=== PATIENT | female | born 1940 | race Caucasian/White ===

== ENCOUNTER → 2016-03-16 | Outpatient (CLI) | payer MEDICARE, BC ==
[~2016-03-16] MED LIST: AMIO200T PO; AMLO2.5T PO; ATOR10 PO; BENA20TA PO; CLON-352 PO; GLIM1TAB PO; WARF2TAB PO
[2016-03-16 12:43] LABS: INTERNATIONAL NORMALIZED RATIO 2.4 RATIO; PROTHROMBIN TIME - PATIENT 27.8 SEC (9.8-11.6)
== END ==
LOC: PLAB 11:29
DX: Z79.01 Long term (current) use of anticoagulants (principal)
CPT/HCPCS: 36415; 85610

== ENCOUNTER → 2016-04-13 | Outpatient (CLI) | payer MEDICARE, BC ==
[2016-04-13 14:13] LABS: INTERNATIONAL NORMALIZED RATIO 2.8 RATIO; PROTHROMBIN TIME - PATIENT 32.7 SEC (9.8-11.6)
== END ==
LOC: PLAB 12:36
DX: Z79.01 Long term (current) use of anticoagulants (principal)
CPT/HCPCS: 36415; 85610

== ENCOUNTER → 2016-05-06 | Outpatient (CLI) | payer MEDICARE, BC ==
[2016-05-06 12:15] LABS: INTERNATIONAL NORMALIZED RATIO 2.2 RATIO
== END ==
LOC: PLAB 10:32
DX: Z79.01 Long term (current) use of anticoagulants (principal)
CPT/HCPCS: 36415; 85610

== ENCOUNTER → 2016-06-07 | Outpatient (CLI) | payer MEDICARE, BC | LOC: PLAB 14:46 | DX: Z79.01 Long term (current) use of anticoagulants (principal) | CPT/HCPCS: 85610 ==

== ENCOUNTER → 2016-07-05 | Outpatient (CLI) | payer MEDICARE, BC ==
[2016-07-05 12:40] LABS: INTERNATIONAL NORMALIZED RATIO 1.9 RATIO; PROTHROMBIN TIME - PATIENT 21.4 SEC (9.8-11.6)
== END ==
LOC: PLAB 10:09
DX: Z79.01 Long term (current) use of anticoagulants (principal)
CPT/HCPCS: 36415; 85610

== ENCOUNTER → 2017-01-17 | Outpatient (CLI) | payer MEDICARE, BC ==
[2017-01-17 13:35] LABS: INTERNATIONAL NORMALIZED RATIO 2.4 RATIO; PROTHROMBIN TIME - PATIENT 27.7 SEC (9.8-11.6)
== END ==
LOC: PLAB 12:47
DX: Z79.01 Long term (current) use of anticoagulants (principal)
CPT/HCPCS: 36415; 85610

== ENCOUNTER → 2017-02-16 | Outpatient (CLI) | payer MEDICARE, BC ==
[2017-02-16 14:13] LABS: INTERNATIONAL NORMALIZED RATIO 2.2 RATIO; PROTHROMBIN TIME - PATIENT 22.5 SEC (9.8-11.6)
== END ==
LOC: PLAB 13:24
DX: Z79.01 Long term (current) use of anticoagulants (principal)
CPT/HCPCS: 36415; 85610

== ENCOUNTER → 2017-03-28 | Outpatient (CLI) | payer MEDICARE, BC ==
[2017-03-28 12:52] LABS: INTERNATIONAL NORMALIZED RATIO 2.9 RATIO; PROTHROMBIN TIME - PATIENT 28.8 SEC (9.8-11.6)
== END ==
LOC: PLAB 11:25
DX: Z79.01 Long term (current) use of anticoagulants (principal)
CPT/HCPCS: 36415; 85610

== ENCOUNTER → 2017-05-02 | Outpatient (CLI) | payer MEDICARE, BC ==
[2017-05-02 14:11] LABS: INTERNATIONAL NORMALIZED RATIO 2.9 RATIO; PROTHROMBIN TIME - PATIENT 29.5 SEC (9.8-11.6)
== END ==
LOC: PLAB 13:36
DX: Z79.01 Long term (current) use of anticoagulants (principal)
CPT/HCPCS: 36415; 85610

== ENCOUNTER 2018-01-08 21:42 | Observation (INO) ==
[2018-01-08 22:06] LABS: Baso # (Auto) 0.1 th/mm3 (0.0-0.2); Baso % (Auto) 0.8 % (0.0-2.0); Eos # (Auto) 0.2 th/mm3 (0.0-0.4); Hematocrit 41.8 % (35.0-46.0); Hemoglobin 14.9 gm/dL (11.6-15.3); Lymph # (Auto) 3.7 th/mm3 (1.0-4.8); Lymph % (Auto) 35.2 % (9.0-44.0); Mean Corpuscular HGB Conc 35.7 % (32.0-36.0); Mean Corpuscular Hemoglobin 30.7 pg (27.0-34.0); Mean Corpuscular Volume 86.2 fL (80.0-100.0); Mean Platelet Volume 8.5 fL (7.0-11.0); Mono % (Auto) 9.1 % (0.0-8.0); Neut # (Auto) 5.6 th/mm3 (1.8-7.7); Neut % (Auto) 52.9 % (16.0-70.0); Platelet Count 282 th/mm3 (150-450); Red Blood Count 4.84 mil/mm3 (4.00-5.30); Red Cell Distribution Width 12.9 % (11.6-17.2); White Blood Count 10.6 th/mm3 (4.0-11.0)
--- NOTE | 2018-01-08 22:12 | ED ---
HPI General Chief complaint: Chest Pain Stated complaint: chest pain Time Seen by Provider: 01/08/18 21:54 History of Present Illness HPI narrative: 77-year-old female with history of coronary artery disease, CABG in 2003, pacemaker, diabetes, hypertension, atrial fibrillation, on warfarin, presents for evaluation of chest pain. Symptoms started 2 hours prior to arrival when she was sitting in a chair at home. She describes it as a substernal chest pressure with no obvious aggravating relieving factors, some dyspnea and nausea as well. Symptoms are moderate. Denies back pain, dizziness or lightheadedness, lower extremity edema. She has no other complaints at this time. Related Data Home Medications Medication Instructions Recorded Confirmed amlodipine-benazepril 1 cap PO DAILY 01/08/18 01/09/18 dronedarone [Multaq] 400 mg PO BID 01/08/18 01/08/18 glimepiride 4 mg PO QAM 01/08/18 01/08/18 warfarin 2.5 mg PO DAILY 01/08/18 01/08/18 Previous Rx's Medication Instructions Recorded metoprolol tartrate 12.5 mg PO HS #30 tab 01/10/18 Allergies Allergy/AdvReac Type Severity Reaction Status Date / Time epinephrine Allergy Severe Shortness Unverified 01/08/18 21:55 of Breath meperidine Allergy Severe Nausea/Vomi Unverified 01/08/18 21:55 ting penicillin G Allergy Severe Rash, Unverified 01/08/18 21:55 Generalized Review of Systems ROS: all other systems reviewed are negative FOR[facility]LY [facility] Medical History Medical History Afib (Acute) CAD (coronary artery disease) (Acute) Diabetes (Acute) HTN (hypertension) (Acute) History of hysterectomy (Acute) Pacemaker (Acute) Surgical History Surgical History Hx of CABG (Acute) S/P ablation of atrial fibrillation (Acute) Social History Social History Substance History: No History of Abuse Second Hand Smoke Exposure: No Smoking Status: Never smoker How Often Do You Have a Drink Containing Alcohol: Never Recent Travel in [facility] within the Last 8 Weeks: No Recent Out of Country Travel within the Last 8 Weeks: No Immunization History Tetanus Immunization: >5 Years Exam Narrative Exam Narrative: GENERAL: Pleasant well-developed well-nourished female no acute distress. Somewhat hypertensive on initial examination. SKIN: Warm and dry. HEAD: Atraumatic. Normocephalic. EYES: Pupils equal and round. No scleral icterus. No injection or drainage. ENT: No nasal bleeding or discharge. Mucous membranes pink and moist. NECK: Trachea midline. No JVD. CARDIOVASCULAR: Regular rate and rhythm. No murmur appreciated. RESPIRATORY: No accessory muscle use. Clear to auscultation. Breath sounds equal bilaterally. GASTROINTESTINAL: Abdomen soft, non-tender, nondistended. Hepatic and splenic margins not palpable. MUSCULOSKELETAL: No obvious deformities. No clubbing. No cyanosis. No edema. NEUROLOGICAL: Awake and alert. No obvious cranial nerve deficits. Motor grossly within normal limits. Normal speech. PSYCHIATRIC: Appropriate mood and affect; insight and judgment normal. Course Initial Documented Vital Signs Temperature 98.1 F 01/08/18 21:48 Pulse Rate 67 01/08/18 21:48 Respiratory Rate 20 01/08/18 21:48 Blood Pressure 207/91 H 01/08/18 21:48 Pulse Oximetry 99 01/08/18 21:48 Last Documented Vital Signs Temperature 97.8 F 01/10/18 16:00 Pulse Rate 61 01/10/18 16:00 Respiratory Rate 16 01/10/18 16:00 Blood Pressure 150/70 H 01/10/18 16:00 Pulse Oximetry 97 01/10/18 16:00 Medical Decision Making FLIP Attestation FLIP supervised visit: Yes Attestation: 77-year-old female came to the emergency room with history of chest pain pain/pressure with the intensity of 10 out of 10 an hour prior to arrival. She was seen by my PA and I am supervising him. Patient has history of CABG in 2003 and says that her pressure feels the same way as she felt prior to her CABG. Patient has history of A. fib and is on Coumadin. She also has a pacemaker. Blood test results came back and the troponin is negative. INR is therapeutic. I went and examined the patient and after 3 sublingual nitros and aspirin her chest pain came down to 6 out of 10. Blood pressure was 165 systolic. Patient will get some morphine for pain. I discussed the case with the hospitalist will admit the patient. I explained to the patient her test results as well as the plan and answered all her and her son's questions to the best of my ability. MDM Narrative Medical decision making narrative: The patient was placed on ECG monitoring pulse oximetry. A 12-lead EKG was obtained revealing a paced rhythm. Lab work , chest x-ray ordered. The patient was given sublingual nitroglycerin, aspirin. Lab work has been reviewed. Initial set of cardiac enzymes are negative. Potassium is 3.4, 20 mEq oral potassium chloride administered. INR is therapeutic at 2.1. GFR is 52. The patient's pain improved after the administration of nitroglycerin however did not resolve. Therefore morphine and Zofran has been ordered. At this point time as the patient's pain is persisting, she will be admitted to the hospitalist service. Dr. Solorio spoke with Dr. Downing who is agreeable. Medical Screen Exam Complete: Yes Emergency Medical Condition: Yes Differential Diagnosis Differential Diagnosis: Acute coronary syndrome, unstable angina, aortic dissection, pneumothorax, pulmonary embolism, pericarditis, myocarditis Lab Data Result diagrams: 01/09/18 04:03 01/09/18 04:03 Lab Results 01/08/18 01/08/18 01/08/18 Range/Units 21:59 21:59 21:59 WBC 10.6 (4.0-11.0) th/mm3 RBC 4.84 (4.00-5.30) mil/mm3 Hgb 14.9 (11.6-15.3) gm/dL Hct 41.8 (35.0-46.0) % MCV 86.2 (80.0-100.0) fL MCH 30.7 (27.0-34.0) pg MCHC 35.7 (32.0-36.0) % RDW 12.9 (11.6-17.2) % Plt Count 282 (150-450) th/mm3 MPV 8.5 (7.0-11.0) fL Neut % (Auto) 52.9 (16.0-70.0) % Lymph % (Auto) 35.2 (9.0-44.0) % Morris % (Auto) 9.1 H (0.0-8.0) % Eos % (Auto) 2.0 (0.0-4.0) % Baso % (Auto) 0.8 (0.0-2.0) % Neut # (Auto) 5.6 (1.8-7.7) th/mm3 Lymph # (Auto) 3.7 (1.0-4.8) th/mm3 Morris # (Auto) 1.0 H (0.0-0.9) th/mm3 Eos # (Auto) 0.2 (0.0-0.4) th/mm3 Baso # (Auto) 0.1 (0.0-0.2) th/mm3 WBC Differential . Differential Comment Auto diff final PT 21.4 H (9.8-11.6) sec INR 2.1 Ratio APTT 37.2 H (23.4-31.7) sec Sodium 138 (136-145) meq/L Potassium 3.4 L (3.5-5.1) meq/L Chloride 106 (98-107) meq/L Carbon Dioxide 21.8 (21.0-32.0) meq/L Anion Gap 10 (5-15) meq/L BUN 19 H (7-18) mg/dL Creatinine 1.03 H (0.50-1.00) mg/dL Estimated GFR 52 L (>89) mL/min POC Glucose (68-110) mg/dl Random Glucose 163 H (74-106) mg/dL Calcium 8.6 (8.5-10.1) mg/dL Magnesium 2.1 (1.5-2.5) mg/dL Total Bilirubin 0.4 (0.2-1.0) mg/dL AST 22 (15-37) U/L ALT 36 (10-53) U/L Alkaline Phosphatase 134 H (45-117) U/L Total Creatine Kinase 162 (26-192) U/L CK-MB (CK-2) 2.7 (0.5-3.6) ng/mL Troponin I Less than 0.02 L (0.02-0.05) ng/mL Total Protein 8.2 (6.4-8.2) g/dL Albumin 4.3 (3.4-5.0) g/dL Lipase 219 (73-393) U/L 01/09/18 01/09/18 01/09/18 Range/Units 02:29 04:03 04:03 WBC 8.4 (4.0-11.0) th/mm3 RBC 4.41 (4.00-5.30) mil/mm3 Hgb 13.5 (11.6-15.3) gm/dL Hct 38.7 (35.0-46.0) % MCV 87.7 (80.0-100.0) fL MCH 30.7 (27.0-34.0) pg MCHC 35.0 (32.0-36.0) % RDW 13.0 (11.6-17.2) % Plt Count 229 (150-450) th/mm3 MPV 8.5 (7.0-11.0) fL Neut % (Auto) 74.9 H (16.0-70.0) % Lymph % (Auto) 16.0 (9.0-44.0) % Morris % (Auto) 7.6 (0.0-8.0) % Eos % (Auto) 0.7 (0.0-4.0) % Baso % (Auto) 0.8 (0.0-2.0) % Neut # (Auto) 6.3 (1.8-7.7) th/mm3 Lymph # (Auto) 1.3 (1.0-4.8) th/mm3 Morris # (Auto) 0.6 (0.0-0.9) th/mm3 Eos # (Auto) 0.1 (0.0-0.4) th/mm3 Baso # (Auto) 0.1 (0.0-0.2) th/mm3 WBC Differential . Differential Comment Auto diff final PT 25.3 H (9.8-11.6) sec INR 2.5 Ratio APTT (23.4-31.7) sec Sodium (136-145) meq/L Potassium (3.5-5.1) meq/L Chloride (98-107) meq/L Carbon Dioxide (21.0-32.0) meq/L Anion Gap (5-15) meq/L BUN (7-18) mg/dL Creatinine (0.50-1.00) mg/dL Estimated GFR (>89) mL/min POC Glucose (68-110) mg/dl Random Glucose (74-106) mg/dL Calcium (8.5-10.1) mg/dL Magnesium (1.5-2.5) mg/dL Total Bilirubin (0.2-1.0) mg/dL AST (15-37) U/L ALT (10-53) U/L Alkaline Phosphatase (45-117) U/L Total Creatine Kinase (26-192) U/L CK-MB (CK-2) (0.5-3.6) ng/mL Troponin I Less than 0.02 L (0.02-0.05) ng/mL Total Protein (6.4-8.2) g/dL Albumin (3.4-5.0) g/dL Lipase (73-393) U/L 01/09/18 01/09/18 01/09/18 Range/Units 04:03 07:37 11:08 WBC (4.0-11.0) th/mm3 RBC (4.00-5.30) mil/mm3 Hgb (11.6-15.3) gm/dL Hct (35.0-46.0) % MCV (80.0-100.0) fL MCH (27.0-34.0) pg MCHC (32.0-36.0) % RDW (11.6-17.2) % Plt Count (150-450) th/mm3 MPV (7.0-11.0) fL Neut % (Auto) (16.0-70.0) % Lymph % (Auto) (9.0-44.0) % Morris % (Auto) (0.0-8.0) % Eos % (Auto) (0.0-4.0) % Baso % (Auto) (0.0-2.0) % Neut # (Auto) (1.8-7.7) th/mm3 Lymph # (Auto) (1.0-4.8) th/mm3 Morris # (Auto) (0.0-0.9) th/mm3 Eos # (Auto) (0.0-0.4) th/mm3 Baso # (Auto) (0.0-0.2) th/mm3 WBC Differential Differential Comment PT (9.8-11.6) sec INR Ratio APTT (23.4-31.7) sec Sodium 139 (136-145) meq/L Potassium 4.6 D (3.5-5.1) meq/L Chloride 107 (98-107) meq/L Carbon Dioxide 24.8 (21.0-32.0) meq/L Anion Gap 7 (5-15) meq/L BUN 16 (7-18) mg/dL Creatinine 0.92 (0.50-1.00) mg/dL Estimated GFR 59 L (>89) mL/min POC Glucose 106 170 H (68-110) mg/dl Random Glucose 186 H (74-106) mg/dL Calcium 7.9 L (8.5-10.1) mg/dL Magnesium (1.5-2.5) mg/dL Total Bilirubin 0.6 (0.2-1.0) mg/dL AST 20 (15-37) U/L ALT 30 (10-53) U/L Alkaline Phosphatase 101 (45-117) U/L Total Creatine Kinase (26-192) U/L CK-MB (CK-2) (0.5-3.6) ng/mL Troponin I Less than 0.02 L (0.02-0.05) ng/mL Total Protein 6.8 D (6.4-8.2) g/dL Albumin 3.6 D (3.4-5.0) g/dL Lipase (73-393) U/L 01/09/18 01/09/18 01/10/18 Range/Units 17:05 21:11 07:51 WBC (4.0-11.0) th/mm3 RBC (4.00-5.30) mil/mm3 Hgb (11.6-15.3) gm/dL Hct (35.0-46.0) % MCV (80.0-100.0) fL MCH (27.0-34.0) pg MCHC (32.0-36.0) % RDW (11.6-17.2) % Plt Count (150-450) th/mm3 MPV (7.0-11.0) fL Neut % (Auto) (16.0-70.0) % Lymph % (Auto) (9.0-44.0) % Morris % (Auto) (0.0-8.0) % Eos % (Auto) (0.0-4.0) % Baso % (Auto) (0.0-2.0) % Neut # (Auto) (1.8-7.7) th/mm3 Lymph # (Auto) (1.0-4.8) th/mm3 Morris # (Auto) (0.0-0.9) th/mm3 Eos # (Auto) (0.0-0.4) th/mm3 Baso # (Auto) (0.0-0.2) th/mm3 WBC Differential Differential Comment PT (9.8-11.6) sec INR Ratio APTT (23.4-31.7) sec Sodium (136-145) meq/L Potassium (3.5-5.1) meq/L Chloride (98-107) meq/L Carbon Dioxide (21.0-32.0) meq/L Anion Gap (5-15) meq/L BUN (7-18) mg/dL Creatinine (0.50-1.00) mg/dL Estimated GFR (>89) mL/min POC Glucose 148 H 187 H 153 H (68-110) mg/dl Random Glucose (74-106) mg/dL Calcium (8.5-10.1) mg/dL Magnesium (1.5-2.5) mg/dL Total Bilirubin (0.2-1.0) mg/dL AST (15-37) U/L ALT (10-53) U/L Alkaline Phosphatase (45-117) U/L Total Creatine Kinase (26-192) U/L CK-MB (CK-2) (0.5-3.6) ng/mL Troponin I (0.02-0.05) ng/mL Total Protein (6.4-8.2) g/dL Albumin (3.4-5.0) g/dL Lipase (73-393) U/L 01/10/18 Range/Units 16:25 WBC (4.0-11.0) th/mm3 RBC (4.00-5.30) mil/mm3 Hgb (11.6-15.3) gm/dL Hct (35.0-46.0) % MCV (80.0-100.0) fL MCH (27.0-34.0) pg MCHC (32.0-36.0) % RDW (11.6-17.2) % Plt Count (150-450) th/mm3 MPV (7.0-11.0) fL Neut % (Auto) (16.0-70.0) % Lymph % (Auto) (9.0-44.0) % Morris % (Auto) (0.0-8.0) % Eos % (Auto) (0.0-4.0) % Baso % (Auto) (0.0-2.0) % Neut # (Auto) (1.8-7.7) th/mm3 Lymph # (Auto) (1.0-4.8) th/mm3 Morris # (Auto) (0.0-0.9) th/mm3 Eos # (Auto) (0.0-0.4) th/mm3 Baso # (Auto) (0.0-0.2) th/mm3 WBC Differential Differential Comment PT (9.8-11.6) sec INR Ratio APTT (23.4-31.7) sec Sodium (136-145) meq/L Potassium (3.5-5.1) meq/L Chloride (98-107) meq/L Carbon Dioxide (21.0-32.0) meq/L Anion Gap (5-15) meq/L BUN (7-18) mg/dL Creatinine (0.50-1.00) mg/dL Estimated GFR (>89) mL/min POC Glucose 96 (68-110) mg/dl Random Glucose (74-106) mg/dL Calcium (8.5-10.1) mg/dL Magnesium (1.5-2.5) mg/dL Total Bilirubin (0.2-1.0) mg/dL AST (15-37) U/L ALT (10-53) U/L Alkaline Phosphatase (45-117) U/L Total Creatine Kinase (26-192) U/L CK-MB (CK-2) (0.5-3.6) ng/mL Troponin I (0.02-0.05) ng/mL Total Protein (6.4-8.2) g/dL Albumin (3.4-5.0) g/dL Lipase (73-393) U/L Imaging Data Radiologist's impression: Chest X-Ray 01/08/18 21:55 CONCLUSION: The lungs are clear. Myocardial Perfusion Scan Nuc Med 01/10/18 00:00 CONCLUSION: 1. No reversible defects observed to suggest acute ischemia. ECG Data Attestation: I personally reviewed and interpreted this ECG as follows: Interpretation: Twelve-lead EKG was reviewed by me. Paced rhythm. Heart rate of 63/min. Discharge Plan Discharge Disposition Patient Disposition: 30 Still Patient Discharge Condition Condition: Stable Discharge Order Discharge Orders: Discharge Order (Routine); Ordered 01/10/18 Ordered By: Asuncion Long Discharge Details Anticipated Discharge Date: 01/10/18 Discharge Comment: OK to discharge patient once cleared by Cardiology Dr Thakur Diagnosis: Chest pain Physicians Team ED Provider: Rebecca Solorio ED Midlevel Provider: Deuce Terry Attending Provider: Asif Acharya Other Providers: Deandre Ugarte Status ED Status: Left Department Discharge Information Discharge Date/Time: 01/08/18 23:52
[2018-01-08 22:17] LABS: Activated Partial Thrombo Time 37.2 sec (23.4-31.7); INR 2.1 Ratio; Prothrombin Time 21.4 sec (9.8-11.6)
[2018-01-08 22:21] LABS: Alanine Aminotransferase 36 U/L (10-53); Albumin 4.3 g/dL (3.4-5.0); Anion Gap 10 meq/L (5-15); Aspartate Aminotransferase 22 U/L (15-37); Blood Urea Nitrogen 19 mg/dL (7-18); Calcium 8.6 mg/dL (8.5-10.1); Carbon Dioxide 21.8 meq/L (21.0-32.0); Chloride 106 meq/L (98-107); Glomerular Filtration Rate 52 mL/min (>89); Glucose,Random 163 mg/dL (74-106); Lipase 219 U/L (73-393); Magnesium 2.1 mg/dL (1.5-2.5); Potassium 3.4 meq/L (3.5-5.1); Sodium 138 meq/L (136-145)
[2018-01-08 22:25] LABS: Alkaline Phosphatase 134 U/L (45-117); Creatine Kinase 162 U/L (26-192); Total Protein 8.2 g/dL (6.4-8.2)
[2018-01-08] MEDS ORDERED: Morphine Inj 4 MG/ML Vial IV.PUSH ONE (22:31)
[2018-01-08 22:38] LABS: Creatine Kinase MB 2.7 ng/mL (0.5-3.6)
--- NOTE | 2018-01-08 22:48 | XR ---
EXAM DATE: 01/08/2018 10:38 PM EST AGE/SEX: 77 years / Female INDICATIONS: Short of breath. CLINICAL DATA: This is the patient's initial encounter. Patient reports that signs and symptoms have been present for 1 day and indicates a pain score of 0/10. MEDICAL/SURGICAL HISTORY: None. Pacemaker. [place] [facility] [place]. . FINDINGS: A single AP view of the chest demonstrates the lungs to be symmetrically aerated without evidence of mass, infiltrate or effusion. The cardiomediastinal contours are unremarkable. Osseous structures a re intact. Prior median sternotomy with sternal wire sutures. Cardiac pacer with 2 leads, stable. CONCLUSION: The lungs are clear. Electronically signed by: Kurtis Wills MD 01/08/2018 10:46 PM EST
[2018-01-08] MEDS ORDERED: Bisacodyl 10 MG Supp RECTAL PRN (22:50)
[2018-01-08] MEDS ORDERED: Acetaminophen 325 MG Tablet PO PRN (22:50)
[2018-01-08] MEDS ORDERED: Dextrose 50% in Water 50 ML Vial IV.PUSH PRN (22:53)
[2018-01-08] MEDS ORDERED: Morphine Sulfate Inj 2 MG/ML Vial IV.PUSH PRN (22:54)
--- NOTE | 2018-01-08 22:56 | P.HPIM ---
History of Present Illness Primary Care Physician: Robbie Pascual History of Present Illness: This is a 77-year-old female with a PMH of HTN, Hyperlipidemia, CAD s/p CABG 2003, A-fib on Coumadin, Pacemaker (Medtronic) and DM who presented to the ER w / c/o chest pain. Pt reports intermittent episodes of palpitations for the last 1wk "from my A-fib", w/ HR as low as 40's. Today, pt w/ acute onset of severe chest pain, pressure-like, 10/31, non-radiating, associated w/ some SOB. 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 S/p NTG and Morphine today w/ significant improvement in pain complaints, chest pain currently 03/02. On arrival, BP 207/91, HR 67, O2 sat 99% on RA, Afebrile. CBC unremarkable. INR 2.1. Chemistry essentially unremarkable except for creatinine 1.03. Troponin negative. CXR with no acute findings. - Diagnosis (1) Chest pain (2) Afib (3) DM (diabetes mellitus) Review of Systems PAST FAMILY HISTORY: Reviewed. No h/o DM or CAD All other systems reviewed negative except as stated in HPI [facility] - History History Provided By: Patient - Medical History Medical History: Medical History (Last Updated 01/08/18 @ 21:53 by Alejandro Jiménez) Afib CAD (coronary artery disease) Diabetes HTN (hypertension) History of hysterectomy Pacemaker - Surgical History Surgical History: Surgical History (Last Updated 01/08/18 @ 21:52 by Alejandro Jiménez) Hx of CABG S/P ablation of atrial fibrillation - Tobacco History Second Hand Smoke Exposure: No Smoking Status: Never smoker - Alcohol History How Often Do You Have a Drink Containing Alcohol: Never - Travel History Recent Travel in the [place] Within the Last 8 Weeks: No Recent Travel Out of the Country Within the Last 8 Weeks: No - Immunization History Tetanus Immunization: >5 Years Medications and Allergies Active Medications: Active Medications Acetaminophen (Tylenol) 650 mg PO Q4H PRN PRN Reason: Temp > 100.4 Al Hydroxide/Mg Hydroxide (Milk Of Magnesia Liq) 30 ml PO Q12H PRN PRN Reason: Mild Constipation Bisacodyl (Dulcolax Supp) 10 mg RECTAL DAILY PRN PRN Reason: SEVERE CONSITIPATION Dextrose (D50w Vial) 50 ml IV.PUSH UNSCH PRN PRN Reason: PER HYPOGLYCEMIA PROTOCOL Dronedarone (Multaq) 400 mg PO BID [facility] Glucagon (Glucagon Inj) 1 mg OTHER PRN PRN PRN Reason: for Hypoglycemia Protocol Insulin Aspart (Novolog Insulin Correctional Sugar Inj) 0 unit SQ ACHS EMMETT; Protocol Lactulose (Lactulose Liq) 30 ml PO DAILY PRN PRN Reason: SEVERE CONSITIPATION Metoprolol Tartrate (Lopressor) 12.5 mg PO BID [facility] Ondansetron HCl (Zofran Inj) 4 mg IV.PUSH Q6H PRN PRN Reason: NAUSEA OR VOMITING Senna/Docusate Sodium (Concepción-Colace) 1 tab PO BID [facility] Sennosides (Senokot) 17.2 mg PO Q12H PRN PRN Reason: Moderate Constipation Sodium Chloride (Ns Flush) 2 ml IV.FLUSH UNSCH PRN PRN Reason: FLUSH AFTER USING IV ACCESS Warfarin Sodium (Coumadin) 2.5 mg PO DAILY@1600 [facility] Allergies Allergy/AdvReac Type Severity Reaction Status Date / Time epinephrine Allergy Severe Shortness Unverified 01/08/18 21:55 of Breath meperidine Allergy Severe Nausea/Vomi Unverified 01/08/18 21:55 ting penicillin G Allergy Severe Rash, Unverified 01/08/18 21:55 Generalized Home Medications Medication Instructions Recorded Confirmed Type amlodipine-benazepril 1 cap PO DAILY 01/08/18 01/08/18 History dronedarone [Multaq] 400 mg PO BID 01/08/18 01/08/18 History glimepiride 4 mg PO QAM 01/08/18 01/08/18 History metoprolol tartrate 12.5 mg PO BID 01/08/18 01/08/18 History warfarin 2.5 mg PO DAILY 01/08/18 01/08/18 History Exam Vital signs: Vital Signs 01/08/18 21:48 01/08/18 22:00 01/08/18 22:48 Temperature 98.1 F Pulse Rate 67 60 62 Respiratory Rate 20 16 Blood Pressure 207/91 H 169/80 H 169/80 H Pulse Oximetry 99 100 99 Intake & Output 01/08/18 01/08/1818 06:59 18:59 06:59 Weight 65 kg Narrative: PE: GENERAL: Very pleasant elderly white female in no acute distress. SKIN: Focused skin assessment warm and dry. HEENT: PERRLA, EOMI. No scleral icterus or conjunctival pallor. No lid lag or facial droop. CARDIOVASCULAR: Regular rate and rhythm. No obvious murmurs to auscultation. No chest tenderness to palpation. RESPIRATORY: No obvious rhonchi or wheezing. Clear to auscultation. Breath sounds equal bilaterally. GASTROINTESTINAL: Abdomen soft, non-tender, nondistended. BS normal. MUSCULOSKELETAL: Extremities without clubbing, cyanosis, or edema. No obvious deformities. NEUROLOGICAL: Awake, alert and oriented x4. No focal neurologic deficits. Moving both upper and lower extremities spontaneously. PSYCHIATRIC: Appropriate mood and affect. Insight and judgment normal. Results - Labs CBC & Chem 7: 01/08/18 21:59 01/08/18 21:59 Labs: Short CBC 01/08/18 Range/Units 21:59 WBC 10.6 (4.0-11.0) th/mm3 Hgb 14.9 (11.6-15.3) gm/dL Hct 41.8 (35.0-46.0) % Plt Count 282 (150-450) th/mm3 BMP 01/08/18 21:59 Sodium 138 Potassium 3.4 L Chloride 106 Carbon Dioxide 21.8 BUN 19 H Creatinine 1.03 H Calcium 8.6 Cardiac Enzymes 01/08/18 Range/Units 21:59 Total Creatine Kinase 162 (26-192) U/L CK-MB (CK-2) 2.7 (0.5-3.6) ng/mL Troponin I Less than 0.02 L (0.02-0.05) ng/mL Liver Function 01/08/18 Range/Units 21:59 Total Bilirubin 0.4 (0.2-1.0) mg/dL AST 22 (15-37) U/L ALT 36 (10-53) U/L Alkaline Phosphatase 134 H (45-117) U/L Albumin 4.3 (3.4-5.0) g/dL - Imaging Impressions Chest X-Ray 01/08/18 21:55 CONCLUSION: The lungs are clear. Caprini VTE Risk Assessment Caprini VTE Risk Assessment: Moderate/High Risk (score >= 2) Caprini Risk Assessment Model: Point Value = 1 Point Value = 2 Point Value = 3 Point Value = 5 Age 41-60 Minor surgery BMI > 25 kg/m2 Swollen legs Varicose veins or History of unexplained or recurrent spontaneous Oral contraceptives or hormone replacement Sepsis (< 1 month) Serious lung disease, including pneumonia (< 1 month) Abnormal pulmonary function Acute myocardial infarction Congestive heart failure (< 1 month) History of inflammatory bowel disease Medical patient at bed rest Age 61-74 Arthroscopic surgery Major open surgery (> 45 min) Laparoscopic surgery (> 45 min) Malignancy Confined to bed (> 72 hours) Immobilizing plaster cast Central venous access Age >= 75 History of VTE Family history of VTE Factor V Leiden Prothrombin [id number] Lupus anticoagulant Anticardiolipin antibodies Elevated serum homocysteine Heparin-induced thrombocytopenia Other congenital or acquired thrombophilia Stroke (< 1 month) Elective arthroplasty Hip, pelvis, or leg fracture Acute spinal cord injury (< 1 month) Prophylaxis Regimen: Total Risk Factor Score Risk Level Prophylaxis Regimen 0-1 Low Early ambulation 2 Moderate Order ONE of the following: *Sequential Compression Device (SCD) *Heparin 5000 units SQ BID 3-4 Higher Order ONE of the following medications: *Heparin 5000 units SQ TID *Enoxaparin/Lovenox 40 mg SQ daily (WT < 150 kg, CrCl > 30 mL/min) *Enoxaparin/Lovenox 30 mg SQ daily (WT < 150 kg, CrCl > 10-29 mL/min) *Enoxaparin/Lovenox 30 mg SQ BID (WT < 150 kg, CrCl > 30 mL/min) AND/OR *Sequential Compression Device (SCD) 5 or more Highest Order ONE of the following medications: *Heparin 5000 units SQ TID (Preferred with Epidurals) *Enoxaparin/Lovenox 40 mg SQ daily (WT < 150 kg, CrCl > 30 mL/min) *Enoxaparin/Lovenox 30 mg SQ daily (WT < 150 kg, CrCl > 10-29 mL/min) *Enoxaparin/Lovenox 30 mg SQ BID (WT < 150 kg, CrCl > 30 mL/min) AND *Sequential Compression Device (SCD) Assessment and Plan - Assessment (1) Chest pain Code(s): R07.9 - Chest pain, unspecified Status: Acute (2) Afib Code(s): I48.91 - Unspecified atrial fibrillation Status: Acute (3) DM (diabetes mellitus) Code(s): E11.9 - Type 2 diabetes mellitus without complications Status: Acute - Plan A/P: 1. Chest Pain: acute onset of substernal chest pain, s/p NTG x3 and Morphine w / eventual relief, chest pain currently 03/02, EKG w/ paced rhythm. Initial trop negative. Will admit for further observation, telemetry, check serial cardiac enzymes to eval for ischemia. NTG/Morphine prn. CXR w/ no acute findings, images reviewed by me. 2. A-fib: h/o A-fib on Multaq, Metoprolol and Coumadin, notes recent episodes of palpitations w/ HR down to 40's, no episodes of such while in ER, will continue w/ home medications, check Echo to eval for possible valvular abnormality, monitor closely w/ Metoprolol, interrogate Voxeettronic Pacer. INR therapeutic, resume Coumadin. Consult Cardiology for further eval/ recommendations. 3. DM: Sliding scale w/ Accu-Cheks, hold Glimepiride for now. 4. DVT Prophylaxis: Coumadin 5. Social work for d/c planning as needed. 6. Case discussed w/ ER physician at length, labs/records/imaging reviewed by me.
[2018-01-09 04:23] LABS: Baso # (Auto) 0.1 th/mm3 (0.0-0.2); Baso % (Auto) 0.8 % (0.0-2.0); Eos # (Auto) 0.1 th/mm3 (0.0-0.4); Eos % (Auto) 0.7 % (0.0-4.0); Hematocrit 38.7 % (35.0-46.0); Hemoglobin 13.5 gm/dL (11.6-15.3); Lymph # (Auto) 1.3 th/mm3 (1.0-4.8); Mean Corpuscular Hemoglobin 30.7 pg (27.0-34.0); Mean Corpuscular Volume 87.7 fL (80.0-100.0); Mean Platelet Volume 8.5 fL (7.0-11.0); Mono # (Auto) 0.6 th/mm3 (0.0-0.9); Mono % (Auto) 7.6 % (0.0-8.0); Neut # (Auto) 6.3 th/mm3 (1.8-7.7); Neut % (Auto) 74.9 % (16.0-70.0); Platelet Count 229 th/mm3 (150-450); Red Blood Count 4.41 mil/mm3 (4.00-5.30); White Blood Count 8.4 th/mm3 (4.0-11.0)
[2018-01-09 04:27] LABS: INR 2.5 Ratio; Prothrombin Time 25.3 sec (9.8-11.6)
[2018-01-09 04:46] LABS: Alanine Aminotransferase 30 U/L (10-53); Albumin 3.6 g/dL (3.4-5.0); Alkaline Phosphatase 101 U/L (45-117); Anion Gap 7 meq/L (5-15); Aspartate Aminotransferase 20 U/L (15-37); Blood Urea Nitrogen 16 mg/dL (7-18); Calcium 7.9 mg/dL (8.5-10.1); Carbon Dioxide 24.8 meq/L (21.0-32.0); Chloride 107 meq/L (98-107); Glomerular Filtration Rate 59 mL/min (>89); Glucose,Random 186 mg/dL (74-106); Potassium 4.6 meq/L (3.5-5.1); Sodium 139 meq/L (136-145); Total Protein 6.8 g/dL (6.4-8.2)
[2018-01-09] MEDS: Insulin NovoLOG Aspart Correctional Sugar Inj SQ SCH ×4 (08:34→21:22)
[2018-01-09] MEDS: Metoprolol Tartrate 25 MG Tablet PO SCH ×2 (08:36→21:15)
[2018-01-09] MEDS: Senna/Docusate Sodium 8.6/50 MG Tablet PO SCH ×2 (08:36→21:15)
[2018-01-09] MEDS: Glimepiride 4 MG Tablet PO SCH (11:06)
--- NOTE | 2018-01-09 11:14 | P.PNIM ---
Subjective Interval history: cc: follow up chest pressure, palpitations Patient is a very pleasant 77 y/o female with a past medical history significant for CAD s/p CABG x 2 vessels in '04, a-fib on Coumadin, pacemaker ( [employer]) and type II diabetes mellitus. She presented to ED after experiencing intermittent episodes of palpitations x 1 week. Yesterday around 7 pm patient experienced midsternal chest pressure that she rated as a 9/10 associated with SOB. Patient states this felt similar to when she had to undergone CABG surgery. Her symptoms lasted > 2 hours and she decided to come to the ED for further evaluation. Patient attempted to take her blood pressure while at home but felt dizzy upon standing. She reports that her heart rate was in the 40's. Her last stress test was > 5 years ago. She recently underwent a pacemaker interrogation that was unremarkable and she reports having a battery life of about 3 years. Subjective: 01/09 - patient denies chest pain, shortness of breath, palpitations, and/or lower extremity pain/edema. She further denies feeling dizzy or lightheaded. Serial troponins remained negative and EKG non-ischemic. Patient denies cough, fevers or chills. Physical Exam Vital signs: Last Vital Signs Temp 98.1 F 01/09/18 08:00 Pulse 69 01/09/18 09:00 Resp 20 01/09/18 08:00 BP 148/68 H 01/09/18 08:00 Pulse Ox 96 01/09/18 08:00 Intake & Output 01/07/18 01/08/18 01/09/18 01/10/18 06:59 06:59 06:59 06:59 Intake Total 240 / 240 Balance 240 / 240 Weight 65 kg Narrative: GENERAL: no acute distress, well developed SKIN: warm and dry HEAD: atraumatic, normocephalic EYES: pupils equal and round. No scleral icterus. No injection or drainage. ENT: No nasal bleeding or discharge. Mucous membranes pink and moist. NECK: Trachea midline. No JVD. CARDIOVASCULAR: Regular rate and rhythm,S1 S2 RESPIRATORY: no accessory muscle use. Clear to auscultation. Breath sounds equal bilaterally. GASTROINTESTINAL: Abdomen soft, non-tender, nondistended. MUSCULOSKELETAL: Extremities without clubbing, cyanosis, or edema. No obvious deformities. NEUROLOGICAL: Awake and alert. No obvious cranial nerve deficits. Motor grossly within normal limits. PSYCHIATRIC: Appropriate mood and affect; insight and judgment normal. Results Labs CBC & Chem 7: 01/09/18 04:03 01/09/18 04:03 Imaging Imaging: Impressions Chest X-Ray 01/08/18 21:55 CONCLUSION: The lungs are clear. Assessment and Plan (1) Chest pain: Code(s): R07.9 - Chest pain, unspecified Status: Acute -- serial trop < 0.02 x 3, EKG non ischemic, CXR w/ no acute process -- continuous tele monitoring -- Cardiology has been consulted -- NTG and Morphine PRN chest pain (2) Afib: Code(s): I48.91 - Unspecified atrial fibrillation Status: Acute -- paroxysmal, currently in sinus seamus -- continue Coumadin dosing per pharmacy, INR 2.5 and therapeutic -- continue Multaq and metoprolol -- check echo -- cardiology consulted (3) DM (diabetes mellitus): Code(s): E11.9 - Type 2 diabetes mellitus without complications Status: Chronic -- continue home Glimepiride -- monitor accuchecks ac/hs with SSI -- cardiac/ADA diet (4) Pacemaker: Code(s): Z95.0 - Presence of cardiac pacemaker Status: Chronic -- interrogation ordered (5) Coronary artery disease: Code(s): I25.10 - Atherosclerotic heart disease of [place] coronary artery without angina pectoris Status: Chronic -- hx of CABG x 2 vessel -- continue home meds Plan Code Status: Full Discussed Condition With: RN, supervising MD Discharge Planning: Home once medically optimized and cleared by cardiology Progress Note: Quality VTE Deep Vein Thrombosis/Pulmonary Embolism Present on Admission: No _ (1) DM (diabetes mellitus) Qualifiers: Chronic kidney disease stage: Diabetes mellitus complication detail: Diabetes mellitus complication status: Diabetes mellitus correction insulin use : Diabetes mellitus macular edema: Diabetes mellitus type: Diabetic retinopathy severity: Laterality: Proliferative retinopathy type: (2) Afib Qualifiers: Atrial fibrillation type: (3) Chest pain Qualifiers: Chest pain type: unspecified Qualified Code(s): R07.9 - Chest pain, unspecified
--- NOTE | 2018-01-09 13:48 | ECHRPT ---
CONCLUSIONS Normal left ventricular size. Wall thickness is normal. The left ventricular systolic function is moderately reduced with an estimated ejection fraction in the range of 40-45%. The left atrial size is vvnd-hu-kimoofnqop dilated. Moderate mitral annular calcification. Mild mitral valve regurgitation. Mild thickening of the aortic valve leaflets. There is estimated mild pulmonary hypertension present (range 40-50 mmHg). There is mild tricuspid valve regurgitation. BP: / HR: Rhythm: MEASUREMENTS (Male / Female) Normal Values Technical Quality: 2D ECHO LV Diastolic Diameter PLAX 4.8 cm 4.2 - 5.9 / 3.9 - 5.3 cm LV Systolic Diameter PLAX 3.4 cm IVS Diastolic Thickness 1.0 cm 0.6 - 1.0 / 0.6 - 0.9 cm LVPW Diastolic Thickness 1.0 cm 0.6 - 1.0 / 0.6 - 0.9 cm LV Relative Wall Thickness 0.4 RV Internal Dim ED PLAX 3.5 cm LVOT Diameter 1.9 cm Aortic Root Diameter 2.3 cm LA Systolic Diameter LX 4.3 cm 3.0 - 4.0 / 2.7 - 3.8 cm LV Ejection Fraction MOD 4C 41.5 % LV Ejection Fraction 4C AL 45.1 % M-MODE Aortic Root Diameter MM 2.1 cm LA Systolic Diameter MM 5.8 cm LA Ao Ratio MM 2.8 AV Cusp Separation MM 1.9 cm DOPPLER AV Peak Velocity 169.0 cm/s AV Peak Gradient 11.4 mmHg LVOT Peak Velocity 96.3 cm/s LVOT Peak Gradient 3.7 mmHg AV Area Cont Eq pk 1.6 cm MV Peak Velocity 82.7 cm/s MV Peak Gradient 2.7 mmHg MV Mean Velocity 51.7 cm/s MV Mean Gradient 1.0 mmHg Mitral E Point Velocity 74.5 cm/s Mitral A Point Velocity 34.1 cm/s Mitral E to A Ratio 2.2 TR Peak Velocity 293.0 cm/s TR Peak Gradient 34.3 mmHg Right Atrial Pressure 10.0 mmHg Pulmonary Artery Systolic Pressu 44.3 mmHg Right Ventricular Systolic Press 44.3 mmHg PV Peak Velocity 161.0 cm/s PV Peak Gradient 10.4 mmHg FINDINGS LEFT VENTRICLE Normal left ventricular size. Wall thickness is normal. The left ventricular systolic function is moderately reduced with an estimated ejection fraction in the range of 40-45%. RIGHT VENTRICLE Normal right ventricular size and systolic function. LEFT ATRIUM The left atrial size is crkj-kx-lronmxundc dilated. RIGHT ATRIUM The right atrial size is normal. ATRIAL SEPTUM Normal atrial septal thickness without atrial level shunting by limited color doppler interrogation. AORTA The aortic root and proximal ascending aorta are normal in size on limited imaging. MITRAL VALVE Moderate mitral annular calcification. Mild mitral valve regurgitation. AORTIC VALVE Mild thickening of the aortic valve leaflets. TRICUSPID VALVE There is estimated mild pulmonary hypertension present (range 40-50 mmHg). There is mild tricuspid valve regurgitation. PULMONARY VALVE No pulmonary valve regurgitation or stenosis. VESSELS The inferior vena cava is normal in size. PERICARDIUM No pericardial effusion. Adam Campbell MD, FACC (Electronically Signed) Final Date:09 January 2018 13:47
--- NOTE | 2018-01-09 17:17 | ECG ---
Date Performed: 01/09/2018 Time Performed: 04:26:24 PTAGE: 77 years EKG: Demand pacing PVCs Pacemaker rhythm - no further analysis Abnormal ECG Since the PREVIOUS TRACING , no significant change noted DOCTOR: Adam Campbell Interpretating Date/Time 01/09/2018 17:16:46
--- NOTE | 2018-01-09 17:25 | ECG ---
Date Performed: 01/09/2018 Time Performed: 02:12:42 PTAGE: 77 years EKG: ELECTRONIC ATRIAL PACEMAKER ELECTRONIC VENTRICULAR PACEMAKER PVCS ABNORMAL RHYTHM ECG PREVIOUS TRACING : 01/08/2018 21.52 Compared to previous tracing, PVCs present DOCTOR: Adam Campbell Interpretating Date/Time 01/09/2018 17:24:32
--- NOTE | 2018-01-09 17:33 | ECG ---
Date Performed: 01/08/2018 Time Performed: 21:52:50 PTAGE: 77 years EKG: ELECTRONIC VENTRICULAR PACEMAKER ABNORMAL RHYTHM ECG PREVIOUS TRACING : 05/05/2011 06.05 Since the previous tracing, no significant change noted DOCTOR: Adam Campbell Interpretating Date/Time 01/09/2018 17:33:05
--- NOTE | 2018-01-10 00:40 | MB ---
cc: Kian Thakur DO DATE: 01/09/2018 REASON FOR CONSULTATION: Chest pain, atrial fibrillation. HISTORY OF PRESENT ILLNESS: Hien Schumacher is a pleasant 77-year-old female who presented to [facility] due to chest pain and episodes of atrial fibrillation. She previously underwent an atrial fibrillation ablation in 2011 and since that time has had very little episodes of atrial fibrillation per the patient. She states that over the past week, she has had some intermittent episodes of palpitation, which felt like her atrial fibrillation. Then, she started noticing severe chest pain in the center of her chest, which was nonradiating. She had some shortness of breath with that. It seemed to go away by itself. 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 She was told that she has approximately 3 years of battery life left. She has not had a recent echo or stress test. In seeing her, she denies neal chest pain, shortness of breath or palpitations. PAST MEDICAL HISTORY: 1. Atrial fibrillation. 2. Coronary artery disease. 3. Diabetes. 4. Hypertension. PAST SURGICAL HISTORY: 1. Atrial fibrillation ablation (05/04/2011). 2. History of coronary artery bypass graft. 4. History of hysterectomy. ALLERGIES: 1. EPINEPHRINE. 2. MEPERIDINE. 3. PENICILLIN. MEDICATIONS: 1. Metoprolol tartrate 12.5 mg b.i.d. 2. Glimepiride 4 mg every night. 3. Amlodipine/benazepril 5/20 daily. 4. Multaq 400 mg b.i.d. 5. Coumadin 2.5 mg daily. FAMILY HISTORY: Denies premature coronary artery disease or sudden cardiac within the family. SOCIAL HISTORY: Denies tobacco, alcohol or drug abuse. REVIEW OF SYSTEMS: Fourteen systems were reviewed including osteopathic. Pertinent positives and negatives above, otherwise negative. PHYSICAL EXAMINATION: VITAL SIGNS: Temperature 97.7, heart rate 66, blood pressure 149/72, respirations 18, pulse oximetry 97% on room air. GENERAL: The patient appears well, in no acute distress. Alert, awake and oriented x3. HEENT: Extraocular muscles intact. Mucous membranes moist. NECK: Supple. No JVD at 45 degrees. No carotid bruits heard bilaterally. Carotid upstroke is brisk in nature. HEART: Regular rate and rhythm. Positive first and second heart tones with a 2/6 holosystolic murmur noted at the apex. LUNGS: Clear to auscultation bilaterally. No wheezes, rales or rhonchi. ABDOMEN: Soft, nontender, nondistended. No organomegaly noted. EXTREMITIES: Trace edema. Femoral and distal pulses are intact bilaterally. NEUROLOGIC: No focal deficits. SKIN: Warm, dry and intact. OSTEOPATHIC: No kyphoscoliosis, lordosis or paraspinal tender points. LABORATORY DATA: Hemoglobin 13.5, hematocrit 38.7, platelets 229. INR 2.5. Potassium 4.6, BUN 16, creatinine 0.92. Troponin negative x3. Electrocardiogram (01/09/2018 at 0426) demand AV pacemaker, PVCs. IMPRESSION: 1. Atrial fibrillation with a history of atrial fibrillation ablation. 2. Chest pain, atypical for coronary insufficiency. 3. Coronary artery disease with a history of coronary artery bypass graft. 4. Diabetes mellitus. RECOMMENDATIONS: 1. Ms. Schumacher presented with chest pain, which has some concerning features for coronary insufficiency, which were somewhat similar to when she needed bypass. 2. Her troponins have been negative. She did present with accelerated hypertension, which may be possibly a cause for her chest pain. 3. We will have her undergo a pharmacologic nuclear stress test in the morning and she will be n.p.o. after midnight. 4. We will plan on holding her Coumadin at this time in case cardiac catheterization is necessary, if her stress test is positive. 5. Otherwise, she will continue on her current medications for atrial fibrillation including Multaq and Coumadin, if stress test is negative. 6. We will check a 2-D echo to look at her overall left ventricular function, cardiac structure and possible valvulopathies. 7. Further recommendations will be made based on hospital course. Thank you for allowing me to see Hien Schumacher. If there are any questions, please do not hesitate to call. DO EZIO Hughes/jonathan , 11:59 PM , 12:12 AM
[2018-01-10] MEDS: Insulin NovoLOG Aspart Correctional Sugar Inj SQ SCH ×3 (08:00→16:43)
[2018-01-10] MEDS ORDERED: Regadenoson Inj 0.4 MG/5 ML Syringe IV.PUSH ONE (09:09)
[2018-01-10] MEDS: Metoprolol Tartrate 25 MG Tablet PO SCH (10:06)
--- NOTE | 2018-01-10 10:32 | NM ---
EXAM DATE: 01/10/2018 10:16 AM EST AGE/SEX: 77 years / Female INDICATIONS:Atrial Fibrillation. Coronary artery disease Chest pain. CLINICAL DATA: This is the patient's initial encounter. Patient reports that signs and symptoms have been present for 1 day and indicates a pain score of 4/10. MEDICAL/SURGICAL HISTORY: Hypertension. Diabetes mellitus type II. Pacemaker. CABG. Hysterec judit. COMPARISON: [facility] [place], MYOCARDIAL PERF PHARM SPECT, 03/09/2011. . DOSE: 8.1 mCi Tc 99m Myoview at rest 26.5 mCi [id number] at stress 0.4 mg Lexiscan STRESS SYMPTOMS: Chest pain. EJECTION FRACTION: 65 % TECHNIQUE: The patient underwent pharmacologic stress with infusion of prescribed dose. Continuous ECG tracing was monitored during stress. Gated SPECT imaging was performed after stress and conventi onal SPECT imaging was performed at rest. The examination was performed on a SPECT/CT scanner, both attenuation and non-corrected datasets were reviewed. FINDINGS: Distribution: The maximum perfused segment at stress is in the anterior wall. Perfusion Study: The pattern of perfusion at stress is within normal limits. Gated Study: There are intact wall motion and wall thickening without hypokinetic or dyskinetic segm ents. The ejection fraction is calculated at 65%. RISK CATEGORY: Low (<1% Annual Motality Rate) CONCLUSION: 1. No reversible defects observed to suggest acute ischemia. Electronically signed by: Kurtis Layton MD 01/10/2018 10:31 AM EST
[2018-01-10] MEDS: Glimepiride 4 MG Tablet PO SCH (10:45)
[2018-01-10] MEDS: Senna/Docusate Sodium 8.6/50 MG Tablet PO SCH (10:45)
[2018-01-10 13:56] VITALS: RESP 16
--- NOTE | 2018-01-10 14:36 | P.PNIM ---
Subjective Interval history: follow up chest pain, palpitations Patient is sitting up on the side of her bed. She denies chest pain, shortness of breath or palpitations. Patient states her heart rate dropped into the 40's overnight while sleeping. She denies feeling dizzy or lightheaded. Pacemaker interrogation completed yesterday. Nuclear stress test completed today. Physical Exam Vital signs: Last Vital Signs Temp 97.7 F 01/10/18 12:00 Pulse 67 01/10/18 12:00 Resp 16 01/10/18 12:00 BP 152/81 H 01/10/18 12:00 Pulse Ox 98 01/10/18 12:00 Intake & Output 01/08/18 01/09/18 01/10/18 01/11/18 06:59 06:59 06:59 06:59 Intake Total 1320 / 1320 Balance 1320 / 1320 Weight 65 kg 66.5 kg Narrative: GENERAL: no acute distress, well nourished SKIN: warm and dry. HEAD: normocephalic, atraumatic EYES: No scleral icterus. No injection or drainage. NECK: Supple, trachea midline. No JVD or lymphadenopathy. CARDIOVASCULAR: Irregularly irregular rate and rhythm without murmurs, gallops, or rubs. RESPIRATORY: Breath sounds equal bilaterally. No accessory muscle use. GASTROINTESTINAL: Abdomen soft, non-tender, nondistended. MUSCULOSKELETAL: No cyanosis, or edema. Results Labs CBC & Chem 7: 01/09/18 04:03 01/09/18 04:03 Imaging Imaging: Impressions Myocardial Perfusion Scan Nuc Med 01/10/18 00:00 CONCLUSION: 1. No reversible defects observed to suggest acute ischemia. Assessment and Plan (1) Chest pain: Code(s): R07.9 - Chest pain, unspecified Status: Acute -- pt chest pain free today -- serial trop < 0.02 x 3, EKG non ischemic, CXR w/ no acute process -- continuous tele monitoring -- Cardiology consulted and following -- nuclear stress test with no evidence of ischemia -- echo -> The left ventricular systolic function is moderately reduced with an estimated ejection fraction in the range of 40-45%, mild pulmonary hypertension -- NTG and Morphine PRN chest pain (2) Afib: Code(s): I48.91 - Unspecified atrial fibrillation Status: Acute -- paroxysmal, currently in sinus seamus -- continue Coumadin dosing per pharmacy, nuclear stress test negative -- continue Multaq and metoprolol -- echo results reviewed -- cardiology consulted and following (3) DM (diabetes mellitus): Code(s): E11.9 - Type 2 diabetes mellitus without complications Status: Chronic -- continue home Glimepiride -- monitor accuchecks ac/hs with SSI -- cardiac/ADA diet (4) Pacemaker: Code(s): Z95.0 - Presence of cardiac pacemaker Status: Chronic -- interrogation completed and findings reviewed (5) Coronary artery disease: Code(s): I25.10 - Atherosclerotic heart disease of [place] coronary artery without angina pectoris Status: Chronic -- hx of CABG x 2 vessel -- continue home meds Plan Code Status: Full Discussed Condition With: RN, supervising MD, cardiology Discharge Planning: Discharge patient to home Condition on discharge: stable Cardiac Diet as tolerated Ad Camilla activity Rx written: none, pt to resume home meds Follow-up with primary care physician within 1 week Follow-up with Cardiology in 2 weeks Progress Note: Quality VTE Deep Vein Thrombosis/Pulmonary Embolism Present on Admission: No _ (1) DM (diabetes mellitus) Qualifiers: Chronic kidney disease stage: Diabetes mellitus complication detail: Diabetes mellitus complication status: 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 transplanted heart: crow heart Qualified Code(s): I25.10 - Atherosclerotic heart disease of [place] coronary artery without angina pectoris (3) Afib Qualifiers: Atrial fibrillation type: persistent Qualified Code(s): I48.1 - Persistent atrial fibrillation (4) Chest pain Qualifiers: Chest pain type: unspecified Ischemic chest pain type: Qualified Code(s): R07.9 - Chest pain, unspecified
[2018-01-10 18:15] VITALS: BP 150/70; PULSE 61; TEMP 97.8; O2SAT 97
[2018-01-10] MEDS ORDERED: Metoprolol Tartrate 25 MG Tablet PO SCH (21:00)
--- NOTE | 2018-01-10 23:53 | P.PNCA ---
Subjective Interval history: No events overnight Feels well, waiting to go home Medications and Allergies Active Medications: Active Medications Acetaminophen (Tylenol) 650 mg PO Q4H PRN PRN Reason: Temp > 100.4 Al Hydroxide/Mg Hydroxide (Milk Of Magnesia Liq) 30 ml PO Q12H PRN PRN Reason: Mild Constipation Bisacodyl (Dulcolax Supp) 10 mg RECTAL DAILY PRN PRN Reason: SEVERE CONSITIPATION Dextrose (D50w Vial) 50 ml IV.PUSH UNSCH PRN PRN Reason: PER HYPOGLYCEMIA PROTOCOL Dronedarone (Multaq) 400 mg PO BID [facility] Last Admin: 01/10/18 11:30 Dose: 400 mg Glimepiride (Amaryl) 4 mg PO DAILY [facility] Last Admin: 01/10/18 10:45 Dose: 4 mg Glucagon (Glucagon Inj) 1 mg OTHER PRN PRN PRN Reason: for Hypoglycemia Protocol Insulin Aspart (Novolog Insulin Correctional Sugar Inj) [address] [facility]; Protocol Last Admin: 01/10/18 16:43 Dose: Not Given Lactulose (Lactulose Liq) 30 ml PO DAILY PRN PRN Reason: SEVERE CONSITIPATION Metoprolol Tartrate (Lopressor) 12.5 mg PO HS [facility] Morphine Sulfate (Morphine Inj) 2 mg IV.PUSH Q4H PRN PRN Reason: PAIN 6-10 Nitroglycerin (Nitro-Bid 2% Oint) 0.5 inch TOPICAL Q6HR PRN PRN Reason: CHEST PAIN Ondansetron HCl (Zofran Inj) 4 mg IV.PUSH Q6H PRN PRN Reason: NAUSEA OR VOMITING Last Admin: 01/08/18 23:42 Dose: 4 mg Senna/Docusate Sodium ([place]pc[place]-Colace) 1 tab PO BID [facility] Last Admin: 01/10/18 10:45 Dose: 1 tab Sennosides (Senokot) 17.2 mg PO Q12H PRN PRN Reason: Moderate Constipation Sodium Chloride (Ns Flush) 2 ml IV.FLUSH UNSCH PRN PRN Reason: FLUSH AFTER USING IV ACCESS Allergies Allergy/AdvReac Type Severity Reaction Status Date / Time epinephrine Allergy Severe Shortness Unverified 01/08/18 21:55 of Breath meperidine Allergy Severe Nausea/Vomi Unverified 01/08/18 21:55 ting penicillin G Allergy Severe Rash, Unverified 01/08/18 21:55 Generalized Home Medications Medication Instructions Recorded Confirmed Type amlodipine-benazepril 1 cap PO DAILY 01/08/18 01/09/18 History dronedarone [Multaq] 400 mg PO BID 01/08/18 01/08/18 History glimepiride 4 mg PO QAM 01/08/18 01/08/18 History warfarin 2.5 mg PO DAILY 01/08/18 01/08/18 History Physical Exam Vital signs: Vital Signs 01/10/18 00:00 01/10/18 04:00 01/10/18 05:30 Temperature 98.1 F 97.9 F Pulse Rate 65 65 Respiratory Rate 18 18 18 Blood Pressure 141/68 H 151/74 H Pulse Oximetry 98 95 01/10/18 08:33 01/10/18 12:00 01/10/18 16:00 Temperature 97.7 F 97.8 F Pulse Rate 67 61 Respiratory Rate 16 16 Blood Pressure 152/81 H 150/70 H Pulse Oximetry 95 98 97 Intake & Output 01/10/18 01/10/18 01/11/18 06:59 18:59 06:59 Intake Total 480 / 480 Balance 480 / 480 Weight 66.5 kg Intake: Oral 480 / 480 Other: # Voids 2 4 Date of Last Bowel Movement 01/09/18 # Bowel Movements 0 Narrative: GENERAL: no acute distress, well nourished SKIN: warm and dry. HEAD: normocephalic, atraumatic EYES: No scleral icterus. No injection or drainage. NECK: Supple, trachea midline. No JVD or lymphadenopathy. CARDIOVASCULAR: Irregularly irregular rate and rhythm without murmurs, gallops, or rubs. RESPIRATORY: Breath sounds equal bilaterally. No accessory muscle use. GASTROINTESTINAL: Abdomen soft, non-tender, nondistended. MUSCULOSKELETAL: No cyanosis, or edema. Results 01/09/18 04:03 01/09/18 04:03 Cardiac Enzymes 01/09/18 01/09/18 Range/Units 02:29 04:03 AST 20 (15-37) U/L Troponin I Less than 0.02 L Less than 0.02 L (0.02-0.05) ng/mL Coagulation 01/09/18 Range/Units 04:03 PT 25.3 H (9.8-11.6) sec CBC 01/09/18 Range/Units 04:03 WBC 8.4 (4.0-11.0) th/mm3 RBC 4.41 (4.00-5.30) mil/mm3 Hgb 13.5 (11.6-15.3) gm/dL Hct 38.7 (35.0-46.0) % Plt Count 229 (150-450) th/mm3 Neut # (Auto) 6.3 (1.8-7.7) th/mm3 Lymph # (Auto) 1.3 (1.0-4.8) th/mm3 [place] # (Auto) 0.6 (0.0-0.9) th/mm3 Eos # (Auto) 0.1 (0.0-0.4) th/mm3 Baso # (Auto) 0.1 (0.0-0.2) th/mm3 Comprehensive Metabolic Panel 01/09/18 Range/Units 04:03 Sodium 139 (136-145) meq/L Potassium 4.6 D (3.5-5.1) meq/L Chloride 107 (98-107) meq/L Carbon Dioxide 24.8 (21.0-32.0) meq/L BUN 16 (7-18) mg/dL Creatinine 0.92 (0.50-1.00) mg/dL Calcium 7.9 L (8.5-10.1) mg/dL AST 20 (15-37) U/L ALT 30 (10-53) U/L Alkaline Phosphatase 101 (45-117) U/L Total Protein 6.8 D (6.4-8.2) g/dL Albumin 3.6 D (3.4-5.0) g/dL Intake and Output 01/10/18 01/10/18 01/11/18 14:59 22:59 06:59 Intake Total 480 / 480 Balance 480 / 480 Intake: Oral 480 / 480 Other: # Voids 4 Date of Last Bowel Movement 01/09/18 # Bowel Movements 0 - Imaging and Cardiology Imaging: Impressions Myocardial Perfusion Scan Nuc Med 01/10/18 00:00 CONCLUSION: 1. No reversible defects observed to suggest acute ischemia. Assessment and Plan - Assessment (1) Afib Code(s): I48.91 - Unspecified atrial fibrillation Status: Acute (2) Chest pain Code(s): R07.9 - Chest pain, unspecified Status: Acute (3) Coronary artery disease Code(s): I25.10 - Atherosclerotic heart disease of [place] coronary artery without angina pectoris Status: Chronic (4) DM (diabetes mellitus) Code(s): E11.9 - Type 2 diabetes mellitus without complications Status: Chronic (5) Pacemaker Code(s): Z95.0 - Presence of cardiac pacemaker Status: Chronic - Plan 1) Atypical chest pain Nuclear stress test showing no ischemia 2) Accelerated HTN Possible cause of chest pain Blood pressure better controlled 3) EF 40-45% by echo 4) Afib Coumadin restarted Interrogation showing 3 years battery life Episodes of AFib, but mostly controlled Con't Multaq 5) Cardiovascularly stable for discharge Will follow up in the office with me Once back home, 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
== END 2018-01-10 18:40 | disposition home or self-care (01) ==
LOC: NEPC 21:42 → NEDA 21:42 → N06 23:30
PROVIDERS: ADMIT Internal Medicine; ATTEND Internal Medicine
DX: Z95.1 Presence of aortocoronary bypass graft; I25.10 Atherosclerotic heart disease of native coronary artery without angina pectoris; I48.1 Persistent atrial fibrillation; E11.9 Type 2 diabetes mellitus without complications; Z79.01 Long term (current) use of anticoagulants; I10 Essential (primary) hypertension; I08.1 Rheumatic disorders of both mitral and tricuspid valves; R07.89 Other chest pain; E78.5 Hyperlipidemia, unspecified; I27.20 Pulmonary hypertension, unspecified; Z79.899 Other long term (current) drug therapy; Z95.0 Presence of cardiac pacemaker